=== PATIENT | female | born 1980 | race Caucasian/White ===

== ENCOUNTER 2017-08-30 | Day surgery (SDC) | END 2017-08-30 14:20 | disposition home or self-care (01) ==

== ENCOUNTER → 2021-02-24 | Outpatient (CLI) | payer BC, OTHER ==
[~2021-02-24] MED LIST: ALBU90OI6 INH; AMOCLA875 PO; BUDE6HFA INH; CLAR500; CLIN150 PO; FURO40 PO; Flomax0.4 MG PO; HYDACE5; HYDACE5 PO; HYDCHL12.5; HYDMOR2 PO; IBUP800 PO; LABE100; LABE100 PO; LEVFLO500 PO; MULVITMINE; OXYACE5T PO; POTA10T PO; PRED1 PO; PROM25 PO; PROM6.25SY PO; Percocet 5-3251 EACH PO; Verotin-Gr Cap1 EACH PO
== END ==
LOC: LAB SHORT 16:43 → LAB 16:43
DX: R30.0 Dysuria (principal)
CPT/HCPCS: 87077; 87086; 87186

== ENCOUNTER → 2023-10-25 | Outpatient (CLI) | payer BC, OTHER | END | disposition home or self-care (01) | LOC: LAB SHORT 15:24 | DX: N39.0 Urinary tract infection, site not specified (principal) | CPT/HCPCS: 87086 ==